=== PATIENT | female | born 1975 | race Caucasian/White ===

== ENCOUNTER 2020-08-12 15:16 | Observation (INO) | payer MEDICAID ==
[~2020-08-12] VITALS: Ht 160 cm; Wt 92.5 kg
[2020-08-12] MEDS ORDERED: DOCO200C5 MT (15:44)
[2020-08-12] MEDS ORDERED: LACTATED RINGERS 1,000 ML IV SCH (17:45)
[2020-08-12] MEDS ORDERED: CLINDAMYCIN 600 MG in DEXTROSE 5% WATER 50 ML IV ONE (17:45)
[2020-08-12] MEDS ORDERED: CLINDAMYCIN 600MG PREMIX 50 ML IV NR (18:00)
== END 2020-08-12 19:00 | disposition home or self-care (01) ==
LOC: 8 EST LDRP 15:16
PROVIDERS: ADMIT Obstetrics & Gynecology; ATTEND Obstetrics & Gynecology
DX: O26.853 Spotting complicating pregnancy, third trimester (principal); Z3A.35 35 weeks gestation of pregnancy
CPT/HCPCS: 59025; 76805; 76817; 76818; 96361; 96365; G0378; J3490; 96360; 96372; 99281